=== PATIENT | female | born 1975 | race American Indian/Alaskan Native ===

== ENCOUNTER 2017-03-15 00:48 | Emergency (ER) | payer BC ==
--- NOTE | 2017-03-15 07:21 | Emergency Department Report ---
ED General Adult HPI - General Chief complaint: Allergic Reaction Stated complaint: ALLERGIC REACTION Time Seen by Provider: 03/15/17 07:17 Source: patient Mode of arrival: Ambulatory Limitations: No Limitations - History of Present Illness Initial comments: Patient comes into the ER today with complaints of itching to her upper extremities, face, neck. Symptoms started today. Patient denies any change in environment other than that she stayed in a hotel 6 days ago. Patient did take some Benadryl with only minimal improvements to her itching. Patient states that at first she thought maybe they were bug bites but that she keeps getting more of them. Patient denies any shortness of breath, tongue swelling, throat swelling. - Related Data Previous Rx's Medication Instructions Recorded Last Taken Type Permethrin [Elimite] 60 gm TP ONCE #60 cream..g. 03/15/17 Unknown Rx predniSONE [Deltasone] 60 mg PO QDAY 5 Days 03/15/17 Unknown Rx Allergies Allergy/AdvReac Type Severity Reaction Status Date / Time latex Allergy Itching Verified 07/05/16 09:22 ED Review of Systems ROS: Stated complaint: ALLERGIC REACTION Other details as noted in HPI Constitutional: denies: chills, fever Eyes: denies: eye pain, eye discharge, vision change ENT: denies: ear pain, throat pain Respiratory: denies: cough, shortness of breath, wheezing Cardiovascular: denies: chest pain, palpitations Endocrine: no symptoms reported Gastrointestinal: denies: abdominal pain, nausea, diarrhea Genitourinary: denies: urgency, dysuria, discharge Musculoskeletal: denies: back pain, joint swelling, arthralgia Skin: rash, pruritus. denies: lesions Neurological: denies: headache, weakness, paresthesias Psychiatric: denies: anxiety, depression Hematological/Lymphatic: denies: easy bleeding, easy bruising ED Past Medical Hx - Past Medical History Previous Medical History?: Yes - Surgical History Past Surgical History?: Yes Additional Surgical History: partial thyroidectomy - Social History Smoking Status: Never Smoker - Medications Home Medications: Home Medications Medication Instructions Recorded Confirmed Last Taken Type Permethrin [Elimite] 60 gm TP ONCE #60 cream..g. 03/15/17 Unknown Rx predniSONE [Deltasone] 60 mg PO QDAY 5 Days 03/15/17 Unknown Rx ED Physical Exam - General Limitations: No Limitations General appearance: alert, in no apparent distress - Head Head exam: Present: atraumatic, normocephalic - Eye Eye exam: Present: normal appearance, PERRL - ENT ENT exam: Present: normal exam, normal orophraynx, mucous membranes moist, TM's normal bilaterally, normal external ear exam - Neck Neck exam: Present: normal inspection - Respiratory Respiratory exam: Present: normal lung sounds bilaterally. Absent: respiratory distress, wheezes, rales, rhonchi, decreased breath sounds - Cardiovascular Cardiovascular Exam: Present: regular rate, normal rhythm. Absent: systolic murmur, diastolic murmur, rubs, gallop - GI/Abdominal GI/Abdominal exam: Present: soft, normal bowel sounds. Absent: distended, tenderness - Extremities Exam Extremities exam: Present: other (multiple circular areas of redness, swelling noted to bilateral upper extremities including her hands and fingers.) - Back Exam Back exam: Present: normal inspection - Neurological Exam Neurological exam: Present: alert, oriented X3, CN II-XII intact - Psychiatric Psychiatric exam: Present: normal affect, normal mood - Skin Skin exam: Present: warm, dry, intact, normal color, erythema, urticaria ( multiple circular, erythematous, nontender lesions noted to bilateral hands, fingers, arms, anterior neck consistent with reaction to insect bites). Absent : rash ED Course Vital Signs 03/15/17 01:03 Temperature 98.3 F Pulse Rate 95 H Respiratory 18 Rate Blood Pressure 149/95 O2 Sat by Pulse 100 Oximetry ED Medical Decision Making - Medical Decision Making Patient is nontoxic and hemodynamically stable. Physical exam is consistent with a form of mite infestation. The patient is not experiencing any signs of anaphylaxis. I will start patient on a short course of steroids to decrease inflammation in itching as well as some Elimite cream for suspected might infestation. I will give patient referral to allergy doctor if symptoms return. Patient is in agreement with treatment plan and patient is stable for discharge. Critical care attestation.: If time is entered above; I have spent that time in minutes in the direct care of this critically ill patient, excluding procedure time. ED Disposition Clinical Impression: Mite infestation, Allergic reaction Disposition: DC-01 TO HOME OR SELFCARE Is pt being admited?: No Does the pt Need Aspirin: No Condition: Good Instructions: Urticaria (ED), Scabies (ED) Prescriptions: Permethrin [Elimite] 60 gm TP ONCE #60 cream..g. predniSONE [Deltasone] 60 mg PO QDAY 5 Days Referrals: PRIMARY CAREMD [Primary Care Provider] - 3-5 Days CHYNA SMITH MD [Referring] - as needed (Allergy Doctor) Time of Disposition: 07:20
[2017-03-15 07:37] VITALS: BP 159/106
== END 2017-03-15 07:48 | disposition home or self-care (01) ==
LOC: ED 00:48
DX: T78.40XA Allergy, unspecified, initial encounter (principal); B88.9 Infestation, unspecified; Z91.040 Latex allergy status
CPT/HCPCS: 99282

== ENCOUNTER 2020-12-18 11:35 | Outpatient (CLI) | payer BC ==
--- NOTE | 2020-12-21 17:16 | Mammography Report ---
DIGITAL SCREENING MAMMOGRAM WITH CAD, 12/18/2020 CLINICAL INFORMATION / INDICATION: Routine screening mammography. SCREENING MAMMO TECHNIQUE: Digital bilateral 2D mammography was obtained in the craniocaudal and mediolateral obliqu e projections. This examination was interpreted with the benefit of Computer-Aided Detection analysis . COMPARISON: 05/03/2014 FINDINGS: Breast Density: The breasts are heterogeneously dense, which may obscure small masses. No dominant mass, suspicious calcifications, or architectural distortion in the right breast. There is a focal asymmetric density seen on the left MLO view which was not present previously. This measures approximately 9 mm and is located approximately 5.5 cm posterior to nipple. IMPRESSION: There is a new focal asymmetric density seen on the right MLO view. Spot compression view s are recommended to further evaluate. Follow up recommendation: Special View: Spot BI-RADS Category 0: Incomplete. Needs additional imaging evaluation and/or prior mammograms for mariah rison. A "normal" or negative report should not discourage follow up or biopsy of a clinically significant f inding. A written summary of these findings will be mailed to the patient. The patient will be entered into a mammography reporting system which will generate a reminder letter for the patient's next appointmen t at the appropriate interval. The [employer] recommends yearly mammograms starting at age 40 and continuing as l regina as a woman is in good health. Breast MRI is recommended for women with an approximate 20-25% or greater lifetime risk of breast cancer, including women with a strong family history of breast or [place]va [place] cancer or who have been treated for Hodgkin's disease. Signer Name: Dexter Lr MD Signed: 12/21/2020 5:08 PM Workstation Name: [id number]
== END 2020-12-18 11:36 | disposition home or self-care (01) ==
LOC: SPVWC 11:35
PROVIDERS: ATTEND Physician Assistant
DX: Z12.31 Encounter for screening mammogram for malignant neoplasm of breast (principal)
CPT/HCPCS: 77067

== ENCOUNTER 2021-01-10 09:06 | Outpatient (CLI) | payer BC ==
--- NOTE | 2021-01-10 14:12 | Mammography Report ---
LEFT DIGITAL DIAGNOSTIC MAMMOGRAM WITH CAD CONVENTIONAL, 01/10/2021 LEFT COMPLETE BREAST ULTRASOUND CLINICAL INFORMATION / INDICATION: Patient presents as a callback from screening mammogram for furthe r evaluation of an asymmetric density in the left breast. ABNORMAL MAMMO TECHNIQUE: Digital left mammographic imaging was performed. Spot compression views were obtained. Com plete ultrasound of all four (4) quadrants was performed. This examination was interpreted with the b enefit of Computer-Aided Detection (CAD) analysis. COMPARISON: Prior mammogram 12/18/2020 FINDINGS: Breast Density: The breasts are heterogeneously dense, which may obscure small masses. MAMMOGRAPHIC FINDINGS: Spot compression views reveal a persistent 9 mm nodular focal asymmetry in the central left breast, middle depth, best seen on MLO view. Additionally, an 8 mm nodular density is s een in the anterior central left breast on spot CC view. A biopsy clip is seen in the anterior 3:00 l eft breast. ULTRASOUND FINDINGS: Complete sonographic evaluation of all 4 quadrants and retroareolar region was p erformed. Complete ultrasound of the left breast reveals numerous benign simple cysts, cluster of c ysts, and a complicated cyst versus hypoechoic nodule. Ice Maker findings include a 1.1 cm compl icated cyst in the 2:00 position located 5 cm from the nipple, and a complicated cyst versus oval cir cumscribed hypoechoic mass in the 3:00 position located 2 cm from the nipple measuring up to 1.2 cm. One of these cysts is felt to account for the nodular asymmetric density seen mammographically. IMPRESSION: 1. Numerous cysts, cluster of cysts, and complicated cysts versus hypoechoic nodule are seen in the l eft breast, one of which accounts for the mammographic finding. The two entry level marketing representative sonographic fi ndings described above are considered probably benign, recommend left breast ultrasound in 6 months t o ensure stability. Follow up recommendation: Short term follow up in 6 months. BI-RADS Category 3: Probably Benign. Followup in 6 months. A "normal" or negative report should not discourage follow up or biopsy of a clinically significant f inding. A written summary of these findings will be mailed to the patient. The patient will be entered into a mammography reporting system which will generate a reminder letter for the patient's next appointmen t at the appropriate interval. According to the [employer], yearly mammograms are recommended starting at age 40 and continuing as long as a woman is in good health. Breast MRI is recommended for women with an sterling roximately 20-25% or greater lifetime risk of breast cancer, including women with a strong family his tory of breast or ovarian cancer and women who have been treated for Hodgkin's disease. Signer Name: Ariana Israel MD Signed: 01/10/2021 12:30 PM Workstation Name: [id number]
== END 2021-01-10 09:07 | disposition home or self-care (01) ==
LOC: SPVWC 09:06
PROVIDERS: ATTEND Family Medicine
DX: N60.02 Solitary cyst of left breast (principal)